=== PATIENT | female | born 1945 | race Hispanic/Latino ===

== ENCOUNTER 2017-12-21 13:25 | Emergency (ER) | payer MEDICARE ==
[2017-12-21] MEDS ORDERED: MEPERIDINE HCL 25 MG/0.5 ML ONE (14:15)
[2017-12-21] MEDS ORDERED: NA CHLORIDE 0.9% 500 ML ONE (14:15)
[2017-12-21 14:36] LABS: Absolute Lymphocytes (CBC) 0.4 K/uL (0.7-4.9); Absolute Monocytes 0.2 K/uL (0.1-1.3); Absolute Neutrophil 9.7 K/uL (1.8-8.0); Basophils % 0.1 % (0-1.3); Hematocrit 41.6 % (36.0-45.0); Lymphocytes % 4.2 % (15.3-44.8); MCH 28.2 pg (27.0-35.0); MCV 84.4 fL (80-100); MPV 8.8 fL (7.6-11.3); Monocytes % 1.5 % (3.3-12.3); RBC Red Blood Cell Count 4.93 M/uL (3.86-4.86)
[2017-12-21] MEDS ORDERED: IBUPROFEN 400 MG TAB ONE (14:53)
[2017-12-21 15:06] LABS: Blood Morphology Comment NOT SEEN (NOT SEEN); Platelet Estimate ADEQ
[2017-12-21 15:18] LABS: Albumin 3.3 g/dL (3.4-5.0); Bilirubin Direct 3.8 mg/dL (0-0.2); Potassium 3.8 mmol/L (3.5-5.1); Protein, Total 8.3 g/dL (6.4-8.2)
[2017-12-21 15:20] LABS: Bilirubin Total 5.1 mg/dL (0.2-1.0)
--- NOTE | 2017-12-21 15:32 | RAD REPORT ---
EXAM DESCRIPTION: US - Abdomen Exam Limited - 12/21/2017 2:55 pm CLINICAL HISTORY: Right upper quadrant pain COMPARISON: MRCP September 26 FINDINGS: Gallbladder size is normal. Multiple small gallstones are seen layering along the dependen t portion of the gallbladder. Sludge is present as well. Gallbladder wall is prominent. No pericholec ystic fluid. Common bile duct is 14 mm with no common duct stone identified. The multiple duct stones seen on the MRCP are not clearly evident. However, only a portion of the common bile duct was visibl e. IMPRESSION: Multiple small stones and sludge layering in the dependent portion of the gallbladder. Mild gallbladder wall thickening. Extrahepatic biliary tree dilatation. The multiple duct stones seen on the September 26 MRCP were not visib le in the imaged portions of the bile duct.
[2017-12-21 15:46] LABS: Urine Amorphous Sediment 2+ /HPF (NONE SEEN); Urine Bacteria <20 /HPF (<20); Urine Culture Reflex Order REFLEXED
[2017-12-21] MEDS ORDERED: CIPROFLOXACIN 400mg IV 400 MG/200 ML BAG IV ONE (16:05)
[2017-12-21] MEDS ORDERED: CEFTRIAXONE/SWI 1gm 1 GM/10 ML SYR ONE (16:05)
--- NOTE | 2017-12-21 16:13 | EDPHYS ---
Physician Documentation [facility] Name: Mary Hansen Age: 72 yrs Sex: Female : 1945 Arrival Date: 12/21/2017 Time: 13:28 Bed 18 Private MD: Ja Webb ED Physician Soham Levi HPI: 12/21 14:21 This 72 yrs old Female presents to ER via Ambulatory with complaints of Fever, rn Chills, Abdominal Pain. 14:21 The patient reports fever, not measured (subjective). Onset: The symptoms/episode rn began/occurred yesterday. Modifying factors: there are no obvious modifying factors. Associated signs and symptoms: Pertinent positives: abdominal pain, chills, nausea, Pertinent negatives: diarrhea, shortness of breath. Severity of symptoms: At their worst the symptoms were moderate in the emergency department the symptoms are unchanged. The patient has experienced similar episodes in the past. The patient has not recently seen a physician. Reports hx of known gallstones and common bile duct stones, has not had gallbladder removed, told GI needs to finish taking out stones first, last ERCP 2 weeks ago. Reports pain returned yesterday, similar to previous gallbladder attacks, + nausea, no vomiting, no diarrhea.. Historical: - Allergies: 13:46 Codeine; aj1 - Home Meds: 13:46 Metformin Oral [Active]; ursodiol Oral [Active]; aj1 - PMHx: 13:46 gallstones; Diabetes - NIDDM; aj1 - Immunization history:: Flu vaccine is up to date. - Social history:: Smoking status: Patient/guardian denies using tobacco. - Ebola Screening: : Patient denies travel to an Ebola-affected area in the 21 days before illness onset. - Family history:: not pertinent. - Hospitalizations: : No recent hospitalization is reported. ROS: 14:21 Constitutional: Negative for weight loss, Eyes: Negative for injury, pain, redness, and burner hand, Neck: Negative for injury, pain, and swelling, Cardiovascular: Negative for chest pain, palpitations, and edema, Respiratory: Negative for shortness of breath, cough, wheezing, and pleuritic chest pain, Abdomen/GI: Negative for vomiting, diarrhea, and constipation, MS/Extremity: Negative for injury and deformity, Skin: Negative for injury, rash, and discoloration, Neuro: Negative for headache, weakness, numbness, tingling, and seizure. Exam: 14:21 Constitutional: This is a well developed, well nourished patient who is awake, alert, rn appears uncomfortable. Head/Face: Normocephalic, atraumatic. Eyes: Pupils equal round and reactive to light, extra-ocular motions intact. Lids and lashes normal. Conjunctiva and sclera are non-icteric and not injected. Cornea within normal limits. Periorbital areas with no swelling, redness, or edema. ENT: dry MM Cardiovascular: tachycardic, regular, no murmur Respiratory: + mild hyperventilation, no wheezing, clear bilaterally Abdomen/GI: soft, + RUQ tenderness, no rebound, + guarding MS/ Extremity: Pulses equal, no cyanosis. Neurovascular intact. Full, normal range of motion. Equal circumference. Neuro: Awake and alert, GCS 15, oriented to person, place, time, and situation. Cranial nerves II-XII grossly intact. Motor strength 5/5 in all extremities. Sensory grossly intact. Vital Signs: 13:46 BP 118 / 81; Pulse 125; Resp 18; Temp 97.5(O); Pulse Ox 100% on R/A; Weight 77.56 kg; aj1 Height 5 ft. 3 in. (160.02 cm) (R); Pain 8/10; 14:31 BP 142 / 73; Pulse 124; Resp 16; Pulse Ox 94% on R/A; Pain 7/10; em 14:50 Temp 100.3(O); em 16:10 BP 88 / 61; Pulse 129; Resp 22; Temp 99.9(O); Pulse Ox 95% on R/A; Pain 5/10; em 16:27 BP 91 / 61; Pulse 120; Resp 20; Pulse Ox 97% on R/A; em 16:54 BP 102 / 54; Pulse 122; Resp 19; Pulse Ox 97% on R/A; Pain 8/10; em 13:46 Body Mass Index 30.29 (77.56 kg, 160.02 cm) aj1 MDM: 13:52 Patient medically screened. rn 16:10 Differential diagnosis: bacterial infection, gastroenteritis, choledocholithiasis, rn cholelithiasis, cholecystitis. Data reviewed: vital signs, nurses notes, lab test result(s), radiologic studies, ultrasound, and as a result, I will admit patient. Counseling: I had a detailed discussion with the patient and/or guardian regarding: the historical points, exam findings, and any diagnostic results supporting the discharge/admit diagnosis, lab results, radiology results, the need to transfer to another facility, for higher level of care, [facility] does not immediately have the required specialist. Response to treatment: the patient's symptoms have mildly improved after treatment, and as a result, I will admit patient. Admission orders: after a detailed discussion of the patient's condition and case, the admit orders are written by me. ED course: Pt improved, consulted with Dr. Handley, recommends transfer due to no GI cable television program director and needs another ERCP, patient updated, willing to be transferred. . 12/21 14:01 Order name: Basic Metabolic Panel; Complete Time: 15:31 12/21 14:01 Order name: CBC with Diff; Complete Time: 15:31 12/21 14:01 Order name: Hepatic Function; Complete Time: 15:31 12/21 14:01 Order name: Lipase; Complete Time: 15:31 12/21 14:01 Order name: Urine Microscopic Only; Complete Time: 16:08 12/21 14:43 Order name: Manual Differential; Complete Time: 15:31 [facility] 12/21 14:04 Order name: US Abdomen Limited; Complete Time: 15:40 12/21 15:32 Order name: Urine Dipstick--Ancillary (enter results) 12/21 15:48 Order name: Urine Culture [facility] 12/21 14:01 Order name: IV Saline Lock; Complete Time: 14:31 12/21 14:01 Order name: Labs collected and sent; Complete Time: 14:31 12/21 14:01 Order name: Urine Dipstick-Ancillary (obtain specimen); Complete Time: 14:56 12/21 14:04 Order name: EKG; Complete Time: 14:04 12/21 14:04 Order name: EKG - Nurse/Tech; Complete Time: 14:55 rn Administered Medications: 14:31 Drug: NS 0.9% 500 ml Route: IV; Rate: bolus; Site: right antecubital; em 14:55 Follow up: Response: No adverse reaction; IV Status: Completed infusion; IV Intake: em 500ml 14:34 Drug: Demerol - Meperidine 12.5 mg Route: IVP; Site: right antecubital; hb 14:55 Follow up: Response: No adverse reaction; Pain is decreased em 14:55 Drug: Motrin 800 mg Route: PO; em 16:53 Follow up: Response: No adverse reaction; Temperature is decreased em 16:16 Drug: Rocephin - (cefTRIAXone) 1 grams Route: IVPB; Infused Over: 30 mins; Site: right hb antecubital; 17:22 Follow up: Response: No adverse reaction; IV Status: Completed infusion em 16:16 Drug: Flagyl 500 mg Volume: 100 ml; Route: IVPB; Rate: 200 ml/hr; Infused Over: 30 em mins; Site: right antecubital; 17:40 Follow up: Response: No adverse reaction; IV Status: Completed infusion; IV Intake: em 100ml 16:16 Drug: NS 0.9% 1000 ml Route: IV; Rate: 1 bolus; Site: right antecubital; em 16:53 Follow up: IV Status: Completed infusion; IV Intake: 1000ml em 16:53 Drug: NS 0.9% 1000 ml Route: IV; Rate: 125 ml/hr; Site: right antecubital; em 17:40 Follow up: IV Status: Infusion continued upon transfer; IV Intake: 500ml em Disposition: 18 16:13 Transfer ordered to [facility]. Diagnosis are Choledocholithiasis, Cholelithiasis, Dehydration. - Reason for transfer: Higher level of care. - Accepting physician is Dr. Duke. - Condition is Stable. - Problem is an ongoing problem. - Symptoms have improved. Signatures: Dispatcher [employer] Pema Mota RN RN aj1 Elgin Lind, CONTROLS PROJECT ENGINEER CONTROLS PROJECT ENGINEER em Soham Levi MD MD rn Baxter, Heather, RN RN hb Botello, Elizabeth eb Corrections: (The following items were deleted from the chart) 17:49 16:13 12/21/2017 16:13 Transfer ordered to [facility]. Diagnosis is eb Choledocholithiasis; Cholelithiasis; Dehydration. Reason for transfer: Higher level of care. Accepting physician is Dr. Duke. Condition is Stable. Problem is an ongoing problem. Symptoms have improved. rn
--- NOTE | 2017-12-21 16:13 | ER ---
Nurse's Notes [facility] Name: Mary Hansen Age: 72 yrs Sex: Female : 1945 Arrival Date: 12/21/2017 Time: 13:28 Bed 18 Private MD: Ja Webb Diagnosis: Choledocholithiasis;Cholelithiasis;Dehydration Presentation: 12/21 13:38 Presenting complaint: Patient states: She starting having upper abdominal pain that aj1 radiates to the back that has been getting worse. States she has been diagnosed with gallstones, and they have been doing procedures to get the stones out of the ducts before taking out her gallbladder. Patient states she had an ERCP on December 09. Denies N/V/D. Reports chills. Transition of care: patient was not received from another setting of care. Onset of symptoms was December 20, 2017. Risk Assessment: Do you want to hurt yourself or someone else? Patient reports no desire to harm self or others. Initial Sepsis Screen: Does the patient meet any 2 criteria? HR > 90 bpm. No. Patient's initial sepsis screen is negative. Does the patient have a suspected source of infection? Yes: Acute abdominal pain. Care prior to arrival: None. 13:38 Method Of Arrival: Ambulatory aj1 13:38 Acuity: NARA 3 aj1 Triage Assessment: 13:46 General: Appears in no apparent distress. uncomfortable, Behavior is calm, cooperative, aj1 appropriate for age. Pain: Complains of pain in right upper quadrant and left upper quadrant Pain radiates to back Pain currently is 7 out of 10 on a pain scale. Neuro: Level of Consciousness is awake, alert, obeys commands. Cardiovascular: Patient's skin is warm and dry. Respiratory: Airway is patent Respiratory effort is even, unlabored, Respiratory pattern is regular, symmetrical. GI: Reports upper abdominal pain, Patient currently denies diarrhea, nausea, vomiting. Historical: - Allergies: 13:46 Codeine; aj1 - Home Meds: 13:46 Metformin Oral [Active]; ursodiol Oral [Active]; aj1 - PMHx: 13:46 gallstones; Diabetes - NIDDM; aj1 - Immunization history:: Flu vaccine is up to date. - Social history:: Smoking status: Patient/guardian denies using tobacco. - Ebola Screening: : Patient denies travel to an Ebola-affected area in the 21 days before illness onset. - Family history:: not pertinent. - Hospitalizations: : No recent hospitalization is reported. Screenin:06 Abuse screen: Denies threats or abuse. Nutritional screening: No deficits noted. em Tuberculosis screening: No symptoms or risk factors identified. Fall Risk None identified. Assessment: 14:00 General: Appears in no apparent distress. uncomfortable, Behavior is calm, cooperative. em Pain: Complains of pain in right upper quadrant. Neuro: Level of Consciousness is awake, alert, obeys commands, Oriented to person, place, time, situation. Cardiovascular: Capillary refill < 3 seconds Patient's skin is warm and dry. Respiratory: Airway is patent Respiratory effort is even, unlabored, Respiratory pattern is regular, symmetrical. GI: Abdomen is round non-distended, Bowel sounds present X 4 quads. Abd is soft X 4 quads Abdomen is tender to palpation X 4 quads. Reports hx of gallstones Patient currently denies diarrhea, nausea, vomiting. : No signs and/or symptoms were reported regarding the genitourinary system. EENT: No signs and/or symptoms were reported regarding the EENT system. Derm: Skin is intact, Skin is pink, warm \T\ dry. Musculoskeletal: Range of motion: intact in all extremities. 14:05 Reassessment: I agree with previous assessment. 15:08 Reassessment: Patient appears in no apparent distress at this time. Patient and/or em family updated on plan of care and expected duration. Pain level reassessed. Patient is alert, oriented x 3, equal unlabored respirations, skin warm/dry/pink. rates pain 5/10 Patient states feeling better. 16:14 Reassessment: BP 88/61, HR 131, Temp 99.9, Dr. Levi notified, 1 liter NS bolus order em received. 16:29 Reassessment: Patient appears in no apparent distress at this time. BP 99/55, HR 120, em Dr. Levi notified, will continue to monitor, pt A\T\Ox4, respirations even and unlabored, skin pink warm and dry. 17:10 Reassessment: Patient appears in no apparent distress at this time. report called to johanny Nava RN at [facility]. 17:23 Reassessment: Patient appears in no apparent distress at this time. Patient and/or em family updated on plan of care and expected duration. Pain level reassessed. Patient is alert, oriented x 3, equal unlabored respirations, skin warm/dry/pink. rates pain 8/10. 17:26 Reassessment: pending EMS for transportation. em 17:35 Reassessment: report given to [facility]. em Vital Signs: 13:46 BP 118 / 81; Pulse 125; Resp 18; Temp 97.5(O); Pulse Ox 100% on R/A; Weight 77.56 kg; aj1 Height 5 ft. 3 in. (160.02 cm) (R); Pain 8/10; 14:31 BP 142 / 73; Pulse 124; Resp 16; Pulse Ox 94% on R/A; Pain 7/10; em 14:50 Temp 100.3(O); em 16:10 BP 88 / 61; Pulse 129; Resp 22; Temp 99.9(O); Pulse Ox 95% on R/A; Pain 5/10; em 16:27 BP 91 / 61; Pulse 120; Resp 20; Pulse Ox 97% on R/A; em 16:54 BP 102 / 54; Pulse 122; Resp 19; Pulse Ox 97% on R/A; Pain 8/10; em 13:46 Body Mass Index 30.29 (77.56 kg, 160.02 cm) aj1 ED Course: 13:28 Patient arrived in ED. sb2 13:29 Ja Webb DO is Private Physician. sb2 13:44 Triage completed. aj1 13:46 Arm band placed on Patient placed in an exam room. aj1 13:52 Soham Levi MD is Attending Physician. rn 14:05 Elgin Lind LVN is Primary Nurse. em 14:06 Patient has correct armband on for positive identification. Placed in gown. Bed in low em position. Call light in reach. 14:06 No provider procedures requiring assistance completed. em 14:52 Ultrasound completed. Patient tolerated well. Notified ED Physician keeley. sg3 14:55 US Abdomen Limited In Process Unspecified. EDMS 16:02 called and initiated transfer with Daphney at the [facility] transfer center. eb 16:[address] Duke the hospitalist electron beam photo mask technician from [facility] with ED doctor for eb patient transfer consultation. 16:21 administrative approval given by Ana Gomez RN transfer station operator. Pt going to eb 15 tower bed 1643. Report to be called to [phone]. Dr. Duke is the accepting doctor. 17:23 Patient transferred, IV remains in place. em Administered Medications: 14:31 Drug: NS 0.9% 500 ml Route: IV; Rate: bolus; Site: right antecubital; em 14:55 Follow up: Response: No adverse reaction; IV Status: Completed infusion; IV Intake: em 500ml 14:34 Drug: Demerol - Meperidine 12.5 mg Route: IVP; Site: right antecubital; hb 14:55 Follow up: Response: No adverse reaction; Pain is decreased em 14:55 Drug: Motrin 800 mg Route: PO; em 16:53 Follow up: Response: No adverse reaction; Temperature is decreased em 16:16 Drug: Rocephin - (cefTRIAXone) 1 grams Route: IVPB; Infused Over: 30 mins; Site: right hb antecubital; 17:22 Follow up: Response: No adverse reaction; IV Status: Completed infusion em 16:16 Drug: Flagyl 500 mg Volume: 100 ml; Route: IVPB; Rate: 200 ml/hr; Infused Over: 30 em mins; Site: right antecubital; 17:40 Follow up: Response: No adverse reaction; IV Status: Completed infusion; IV Intake: em 100ml 16:16 Drug: NS 0.9% 1000 ml Route: IV; Rate: 1 bolus; Site: right antecubital; em 16:53 Follow up: IV Status: Completed infusion; IV Intake: 1000ml em 16:53 Drug: NS 0.9% 1000 ml Route: IV; Rate: 125 ml/hr; Site: right antecubital; em 17:40 Follow up: IV Status: Infusion continued upon transfer; IV Intake: 500ml em Intake: 14:55 IV: 500ml; Total: 500ml. em 16:53 IV: 1000ml; Total: 1500ml. em 17:40 IV: 100ml; Total: 1600ml. em 17:40 IV: 500ml; Total: 2100ml. em Outcome: 16:13 ER care complete, transfer ordered by MD. gray 17:34 Transferred by ground EMS to [facility], [facility], Transfer form completed. em X-rays sent w/ patient. 17:34 Condition: good 17:34 Instructed on the need for transfer, Demonstrated understanding of instructions. 17:49 Patient left the ED. eb Addendum: 12/24/2017 08:07 Addendum: Culture Results: Positive urine culture. faxed urine culture report to [facility], CARO Chavez RN. Signatures: Dispatcher [employer] EDPema Null RN RN aj1 Elgin Lind, MACHINE SILVER STRIPPER MACHINE SILVER STRIPPER em Soham Levi MD MD rn Smirch, Shelby, RN RN ss Baxter, Heather, RN RN hb Godinez, Sarah sg3 Billeau, Sheri sb2 Amarilis Talley
[2017-12-21] MEDS ORDERED: NA CHLORIDE 0.9% 1,000 ML ONE ×2 (16:16→16:51)
[2017-12-21 16:17] LABS: Urine Blood 2+ (NEG); Urine Glucose NEGATIVE (NEG); Urine Protein 2+ (NEG); Urine Specific Gravity 1.025 (1.005-1.030)
--- NOTE | 2017-12-22 05:43 | EKG ---
Test Date: 2017-12-21 Test Time: 14:51:10 Rubber Press Operator: FRED MEASUREMENT RESULTS: Intervals: Rate: 128 MD: 120 QRSD: 80 QT: 318 QTc: 464 Taylor: P: 32 MD: 120 QRS: -23 T: 49 INTERPRETIVE STATEMENTS: Sinus tachycardia Nonspecific T wave abnormality Abnormal ECG Compared to ECG 12/04/1998 08:12:00 T-wave abnormality now present Sinus rhythm no longer present Electronically Signed On 12-22-17 05:42:28 CDT by Isak Greene
== END 2017-12-21 17:49 | disposition short-term general hospital (02) ==
LOC: ER 13:25
DX: K80.50 Calculus of bile duct without cholangitis or cholecystitis without obstruction (principal); K80.20 Calculus of gallbladder without cholecystitis without obstruction; E86.0 Dehydration; E11.9 Type 2 diabetes mellitus without complications; Z88.5 Allergy status to narcotic agent
CPT/HCPCS: 36415; 76705; 80048; 80076; 83690; 85025; 87086; 87088; 93005; J0696; J0744; J2175; J7030 ×2; 81003; 81015; 87077; 87186; 96361; 96365; 96368; 96375; 99285